=== PATIENT | male | born 1995 | race African-American/Black ===

== ENCOUNTER 2017-06-05 | Emergency (ER) | payer OTHER, SELFPAY ==
--- NOTE | 2017-06-05 15:47 | ER ---
Nurse's Notes [facility] Name: Tino Farrell Age: 21 yrs Sex: Male : 1995 Arrival Date: 06/05/2017 Time: 14:33 Bed Waiting Private MD: Diagnosis: Presentation: 06/05 14:48 Presenting complaint: Patient states: my tummy was hurling this morning, its like a hj sharp pain; lower part; denies nausea and vomiting; reports diarrhea x 1;. Transition of care: patient was not received from another setting of care. Onset of symptoms was June 05, 2017. Care prior to arrival: None. 14:48 Method Of Arrival: Ambulatory 14:48 Acuity: JOSE ANTONIO 3 hj 15:46 Note pt states, something came up, wanted to leave; pt left at 1545. Triage Assessment: 14:51 General: Appears in no apparent distress. uncomfortable, Behavior is calm, cooperative, hj appropriate for age. Pain: Complains of pain in right lower quadrant and left lower quadrant. GI: Reports lower abdominal pain, nausea. Historical: - Allergies: 14:50 No Known Allergies; hj - Home Meds: 14:50 None [Active]; hj - PMHx: 14:50 None; - PSHx: 14:50 None; Assessment: 14:51 GI: Bowel sounds present X 4 quads. Abd is soft. Vital Signs: 14:51 BP 142 / 79; Pulse 80; Resp 18; Temp 98.2(TE); Pulse Ox 100% on R/A; Weight 116.57 kg; hj Height 6 ft. 5 in. (195.58 cm); Pain 6/10; 14:51 Body Mass Index 30.47 (116.57 kg, 195.58 cm) ED Course: 14:33 Patient arrived in ED. mr 14:50 Triage completed. 14:51 Arm band placed on right wrist. Administered Medications: No medications were administered Outcome: 15:47 Patient left the ED. Signatures: Jaen May Henry, RN RN hj Corrections: (The following items were deleted from the chart) 14:53 14:51 Pulse 80bpm; Resp 18bpm; Pulse Ox 100% RA; Temp 98.2F Temporal; 116.57 kg; Height hj 6 ft. 5 in.; BMI: 30.4; Pain 6/10; hj
== END 2017-06-05 15:47 | disposition left against medical advice (07) ==
DX: Z53.21 Procedure and treatment not carried out due to patient leaving prior to being seen by health care provider (principal)
CPT/HCPCS: 99281

== ENCOUNTER 2018-05-23 09:06 | Emergency (ER) | payer SELFPAY ==
--- NOTE | 2018-05-23 10:11 | EDPHYS ---
Physician Documentation [facility] Name: Tino Farrell Age: 22 yrs Sex: Male : 1995 Arrival Date: 05/23/2018 Time: 09:09 Bed 18 Private MD: ED Physician Lev Edwards HPI: 05/23 09:35 This 22 yrs old Black Male presents to ER via Ambulatory with complaints of Fever. cp 09:35 The patient reports fever, not measured (subjective). Onset: The symptoms/episode cp began/occurred 2 day(s) ago. Associated signs and symptoms: Pertinent positives: cough, sinus congestion, sore throat, Pertinent negatives: diarrhea, vomiting. Severity of symptoms: in the emergency department the symptoms have improved mildly. Historical: - Allergies: 09:45 No Known Allergies; hb - Home Meds: 09:45 None [Active]; hb - PMHx: 09:45 None; hb - PSHx: 09:45 None; hb - Immunization history:: Adult Immunizations up to date. - Social history:: Smoking status: Patient/guardian denies using tobacco. - Ebola Screening: : No symptoms or risks identified at this time. ROS: 09:40 Constitutional: Negative for body aches, fever, poor PO intake. cp 09:40 Eyes: Negative for injury, pain, redness, and discharge. cp 09:40 ENT: Positive for sinus congestion, sore throat, Negative for drainage from ear(s), ear pain, difficulty swallowing, difficulty handling secretions. 09:40 Neck: Negative for pain with movement, pain at rest, stiffness. 09:40 Respiratory: Positive for cough, Negative for wheezing. 09:40 Abdomen/GI: Negative for vomiting, diarrhea, constipation. 09:40 Skin: Negative for rash. 09:40 Neuro: Negative for altered mental status, headache. 09:40 All other systems are negative. Exam: 09:45 Constitutional: The patient appears in no acute distress, alert, awake, non-toxic, well cp developed, well nourished. 09:45 Head/Face: Normocephalic, atraumatic. cp 09:45 Eyes: Periorbital structures: appear normal, Conjunctiva: normal, no exudate, no injection, Lids and lashes: appear normal, bilaterally. 09:45 ENT: External ear(s): are unremarkable, Ear canal(s): are normal, clear, TM's: dullness, bilaterally, Nose: is normal, Mouth: Lips: moist, Oral mucosa: moist, Posterior pharynx: Airway: no evidence of obstruction, patent, Tonsils: no enlargement, no exudate, erythema, that is mild, exudate, is not appreciated. 09:45 Neck: ROM/movement: is normal, is supple, without pain, no range of motions limitations, no meningismus, no nuchal rigidity. 09:45 Chest/axilla: Inspection: normal, Palpation: is normal, no crepitus, no tenderness. 09:45 Cardiovascular: Rate: normal, Rhythm: regular. 09:45 Respiratory: the patient does not display signs of respiratory distress, Respirations: normal, no use of accessory muscles, no retractions, no splinting, no tachypnea, labored breathing, is not present, Breath sounds: decreased breath sounds, are not appreciated, stridor, is not appreciated, + upper airway congestion. wheezing: is not appreciated. 09:45 Abdomen/GI: Inspection: abdomen appears normal. 09:45 Skin: no rash present. Vital Signs: 09:24 BP 136 / 78; Pulse 63; Resp 18; Temp 98.3; Pulse Ox 99% on R/A; Weight 117.93 kg; dm5 Height 6 ft. 3 in. (190.50 cm) (R); 09:24 Body Mass Index 32.50 (117.93 kg, 190.50 cm) dm5 MDM: 09:18 Patient medically screened. cp 10:10 Data reviewed: vital signs, nurses notes, lab test result(s), and as a result, I will cp discharge patient. 10:10 Differential diagnosis: viral Infection, bacterial infection, bronchitis, pneumonia cp meningitis. Counseling: I had a detailed discussion with the patient and/or guardian regarding: the historical points, exam findings, and any diagnostic results supporting the discharge/admit diagnosis, lab results, to return to the emergency department if symptoms worsen or persist or if there are any questions or concerns that arise at home. 05/23 09:30 Order name: Influenza Screen (a \T\ B) 05/23 09:30 Order name: Strep 05/23 10:02 Order name: Throat Culture EDMS Administered Medications: No medications were administered Disposition: 05/24 07:43 Co-signature as Attending Physician, Lev Edwards MD I agree with the assessment and [facility] plan of care. Disposition: 05/23/18 10:11 Discharged to Home. Impression: Acute upper respiratory infection, unspecified. - Condition is Stable. - Discharge Instructions: Upper Respiratory Infection, Adult, Viral Respiratory Infection, Form - Excuse from Work, School, or Physical Activity. - Medication Reconciliation Form, Thank You Letter, Antibiotic Education, Prescription Opioid Use form. - Follow up: Private Physician; When: 2 - 3 days; Reason: Worsening of condition. - Problem is new. - Symptoms have improved. Signatures: Dispatcher [employer] EDLev Kiran MD MD cha Page, Corey, AISHWARYA PA Marcelle Bo, RN RN hb Corrections: (The following items were deleted from the chart) 05/23 10:30 10:11 05/23/2018 10:11 Discharged to Home. Impression: Acute upper respiratory hb infection, unspecified. Condition is Stable. Forms are Medication Reconciliation Form, Thank You Letter, Antibiotic Education, Prescription Opioid Use. Follow up: Private Physician; When: 2 - 3 days; Reason: Worsening of condition. Problem is new. Symptoms have improved. cp
--- NOTE | 2018-05-23 10:11 | ER ---
Nurse's Notes [facility] Name: Tino Farrell Age: 22 yrs Sex: Male : 1995 Arrival Date: 05/23/2018 Time: 09:09 Bed 18 Private MD: Diagnosis: Acute upper respiratory infection, unspecified Presentation: 05/23 09:24 Presenting complaint: Patient states: cough, sore throat, fever started Monday. Whittaker a dm5 little better yesterday but his throat is hurting again. Temp 98.3 at this time. Transition of care: patient was not received from another setting of care. Onset of symptoms was May 21, 2018. Risk Assessment: Do you want to hurt yourself or someone else? Patient reports no desire to harm self or others. Initial Sepsis Screen: Does the patient meet any 2 criteria? No. Patient's initial sepsis screen is negative. Does the patient have a suspected source of infection? No. Patient's initial sepsis screen is negative. Care prior to arrival: None. 09:24 Method Of Arrival: Ambulatory dm5 09:24 Acuity: JOSE ANTONIO 4 dm5 Triage Assessment: 09:24 General: Appears in no apparent distress. Behavior is calm, cooperative. Pain: dm5 Complains of pain in throat. Neuro: Level of Consciousness is awake, alert, obeys commands, Oriented to person, place, time, situation. Respiratory: Airway is patent Respiratory effort is even, unlabored, relaxed, Respiratory pattern is regular, symmetrical. Derm: Skin is pink, warm \T\ dry. Historical: - Allergies: 09:45 No Known Allergies; hb - Home Meds: 09:45 None [Active]; hb - PMHx: 09:45 None; hb - PSHx: 09:45 None; hb - Immunization history:: Adult Immunizations up to date. - Social history:: Smoking status: Patient/guardian denies using tobacco. - Ebola Screening: : No symptoms or risks identified at this time. Screenin:45 Abuse screen: Denies threats or abuse. Denies injuries from another. Nutritional hb screening: No deficits noted. Tuberculosis screening: No symptoms or risk factors identified. Fall Risk None identified. Assessment: 09:30 General: Appears in no apparent distress. ill, Behavior is calm, cooperative. Pain: hb Denies pain. Neuro: Level of Consciousness is awake, alert, obeys commands, Oriented to person, place, time, situation. Cardiovascular: Capillary refill < 3 seconds Patient's skin is warm and dry. Respiratory: Airway is patent Respiratory effort is even, unlabored, Respiratory pattern is regular, symmetrical, Breath sounds are clear bilaterally. GI: No signs and/or symptoms were reported involving the gastrointestinal system. : No signs and/or symptoms were reported regarding the genitourinary system. EENT: No signs and/or symptoms were reported regarding the EENT system. Derm: Skin is intact, is healthy with good turgor. Musculoskeletal: No signs and/or symptoms reported regarding the musculoskeletal system. 10:28 Reassessment: Patient appears in no apparent distress at this time. No changes from hb previously documented assessment. Patient and/or family updated on plan of care and expected duration. Pain level reassessed. Patient is alert, oriented x 3, equal unlabored respirations, skin warm/dry/pink. Vital Signs: 09:24 BP 136 / 78; Pulse 63; Resp 18; Temp 98.3; Pulse Ox 99% on R/A; Weight 117.93 kg; dm5 Height 6 ft. 3 in. (190.50 cm) (R); 09:24 Body Mass Index 32.50 (117.93 kg, 190.50 cm) dm5 ED Course: 09:09 Patient arrived in ED. as 09:18 Lev Sandoval PA is PHCP. cp 09:18 Lev Edwards MD is Attending Physician. cp 09:24 Arm band placed on right wrist. Patient placed in an exam room. dm5 09:25 Triage completed. dm5 09:45 Patient has correct armband on for positive identification. Bed in low position. Call hb light in reach. Side rails up X 1. 10:20 Marcelle Del Valle, RN is Primary Nurse. hb 10:30 No provider procedures requiring assistance completed. Patient did not have IV access hb during this emergency room visit. Administered Medications: No medications were administered Outcome: 10:11 Discharge ordered by . cp 10:30 Discharged to home ambulatory. hb 10:30 Condition: stable 10:30 Discharge instructions given to patient, Instructed on discharge instructions, follow up and referral plans. medication usage, Demonstrated understanding of instructions, follow-up care, medications. 10:30 Patient left the ED. hb Signatures: Patrizia Cook RN RN dm5 Tomasa Stack Corey, PA PA Marcelle Bo, RN RN hb
== END 2018-05-23 10:30 | disposition home or self-care (01) ==
LOC: ER 09:06
DX: J06.9 Acute upper respiratory infection, unspecified (principal)
CPT/HCPCS: 87070; 87081; 87804; 99281

== ENCOUNTER 2018-07-25 19:57 | Emergency (ER) | payer SELFPAY ==
--- NOTE | 2018-07-25 20:58 | ER ---
Nurse's Notes [facility] Name: Tino Farrell Age: 22 yrs Sex: Male : 1995 Arrival Date: 07/25/2018 Time: 19:59 Bed 27 Private MD: Diagnosis: Acute pharyngitis Presentation: 07/25 20:04 Presenting complaint: Patient states: I have had fever, body aches, sore throat since la1 last night. Transition of care: patient was not received from another setting of care. Onset of symptoms was July 25, 2018. Risk Assessment: Do you want to hurt yourself or someone else? Patient reports no desire to harm self or others. Initial Sepsis Screen: Does the patient meet any 2 criteria? No. Patient's initial sepsis screen is negative. Does the patient have a suspected source of infection? No. Patient's initial sepsis screen is negative. Care prior to arrival: None. 20:04 Method Of Arrival: Ambulatory la1 20:04 Acuity: JOSE ANTONIO 4 la1 Triage Assessment: 21:18 Headache History: The patient has had previous headaches. General: Appears in no mg2 apparent distress. Behavior is calm, cooperative. Pain: Complains of pain in head. 21:18 Pain: Pain currently is 2 out of 10 on a pain scale. Pain began suddenly, 1 day ago. mg2 Also complains of no other associated symptoms. Historical: - Allergies: 20:05 No Known Allergies; la1 - PMHx: 20:05 None; la1 - Immunization history:: Adult Immunizations up to date. - Social history:: Smoking status: Patient/guardian denies using tobacco. - Ebola Screening: : No symptoms or risks identified at this time. Screenin:51 Abuse screen: Denies threats or abuse. Denies injuries from another. Nutritional mg2 screening: No deficits noted. Tuberculosis screening: No symptoms or risk factors identified. Fall Risk None identified. Assessment: 20:51 General: Appears in no apparent distress. comfortable, Behavior is calm, cooperative. mg2 Pain: Complains of pain in throat. Neuro: Level of Consciousness is awake, alert, obeys commands, Oriented to person, place, time, situation. Neuro: Reports headache. Cardiovascular: Capillary refill < 3 seconds Patient's skin is warm and dry. Respiratory: Airway is patent Respiratory effort is even, unlabored, Respiratory pattern is regular, symmetrical. GI: No signs and/or symptoms were reported involving the gastrointestinal system. : No signs and/or symptoms were reported regarding the genitourinary system. EENT: Reports sore throat. Derm: Skin is intact, is healthy with good turgor, Skin is pink, warm \T\ dry. normal. Musculoskeletal: Circulation, motion, and sensation intact. Capillary refill < 3 seconds. Vital Signs: 20:05 BP 130 / 83; Pulse 109; Resp 16; Temp 99.9; Pulse Ox 100% on R/A; Weight 113.4 kg; la1 Height 6 ft. 2 in. (187.96 cm); Pain 4/10; 20:50 BP 125 / 78; Pulse 110; Resp 18; Temp 101.7(O); Pulse Ox 100% on R/A; Pain 2/10; mg2 20:05 Body Mass Index 32.10 (113.40 kg, 187.96 cm) la1 ED Course: 19:59 Patient arrived in ED. am2 20:05 Triage completed. la1 20:05 Arm band placed on left wrist. la1 20:12 Nguyen Navarro FNP-C is [facility]. kb 20:12 Jaspal Conley MD is Attending Physician. kb 20:46 Rupert Esparza RN is Primary Nurse. mg2 20:51 No provider procedures requiring assistance completed. Patient did not have IV access mg2 during this emergency room visit. 21:18 Patient has correct armband on for positive identification. Pulse ox on. NIBP on. mg2 Administered Medications: 20:56 Drug: Motrin 600 mg Route: PO; mg2 21:16 Follow up: Response: No adverse reaction; Medication administered at discharge. mg2 Outcome: 20:58 Discharge ordered by . kb 21:17 Discharged to home ambulatory. mg2 21:17 Condition: stable 21:17 Discharge instructions given to patient, Instructed on discharge instructions, follow up and referral plans. Demonstrated understanding of instructions, follow-up care. 21:19 Patient left the ED. mg2 Signatures: Nguyen Navarro FNP-C FNP-Amando Tolbert RN RN la1 Maria Alejandra Toney am2 Rupert Esparza RN RN mg2 Corrections: (The following items were deleted from the chart) 21:17 20:50 Temp 101.7F Oral; mg2 mg2
--- NOTE | 2018-07-25 20:58 | EDPHYS ---
Physician Documentation [facility] Name: Tino Farrell Age: 22 yrs Sex: Male : 1995 Arrival Date: 07/25/2018 Time: 19:59 Bed 27 Private MD: ED Physician Jaspal Conley HPI: 07/25 20:56 This 22 yrs old Black Male presents to ER via Ambulatory with complaints of Fever, kb Headache, Sore Throat. 20:56 The patient presents with sore throat. The patient describes throat pain as constant. kb 20:56 Onset: The symptoms/episode began/occurred last night. Severity of symptoms: At their kb worst the symptoms were moderate, in the emergency department the symptoms are unchanged. Modifying factors: The symptoms are alleviated by nothing, the symptoms are aggravated by swallowing, Patient's oral intake status: good. Associated signs and symptoms: Pertinent positives: fever, flu-like symptoms, myalgias, Sore throat. The patient has not experienced similar symptoms in the past. The patient has not recently seen a physician. Historical: - Allergies: 20:05 No Known Allergies; la1 - PMHx: 20:05 None; la1 - Immunization history:: Adult Immunizations up to date. - Social history:: Smoking status: Patient/guardian denies using tobacco. - Ebola Screening: : No symptoms or risks identified at this time. ROS: 20:54 Cardiovascular: Negative for chest pain, palpitations, and edema, Respiratory: Negative kb for shortness of breath, cough, wheezing, and pleuritic chest pain, Abdomen/GI: Negative for abdominal pain, nausea, vomiting, diarrhea, and constipation, Back: Negative for injury and pain, MS/Extremity: Negative for injury and deformity, Skin: Negative for injury, rash, and discoloration, Neuro: Negative for headache, weakness, numbness, tingling, and seizure. 20:54 Constitutional: Positive for body aches, chills, fatigue, fever, malaise, Negative for poor PO intake, weight loss. 20:54 ENT: Positive for sore throat. Exam: 20:54 Constitutional: This is a well developed, well nourished patient who is awake, alert, kb and in no acute distress. Head/Face: Normocephalic, atraumatic. Neck: Trachea midline, no thyromegaly or masses palpated, and no cervical lymphadenopathy. Supple, full range of motion without nuchal rigidity, or vertebral point tenderness. No Meningismus. Chest/axilla: Normal chest wall appearance and motion. Nontender with no deformity. No lesions are appreciated. Cardiovascular: Regular rate and rhythm with a normal S1 and S2. No gallops, murmurs, or rubs. Normal PMI, no JVD. No pulse deficits. Respiratory: Lungs have equal breath sounds bilaterally, clear to auscultation and percussion. No rales, rhonchi or wheezes noted. No increased work of breathing, no retractions or nasal flaring. Abdomen/GI: Soft, non-tender, with normal bowel sounds. No distension or tympany. No guarding or rebound. No evidence of tenderness throughout. Skin: Warm, dry with normal turgor. Normal color with no rashes, no lesions, and no evidence of cellulitis. MS/ Extremity: Pulses equal, no cyanosis. Neurovascular intact. Full, normal range of motion. Neuro: Awake and alert, GCS 15, oriented to person, place, time, and situation. Cranial nerves II-XII grossly intact. Motor strength 5/5 in all extremities. Sensory grossly intact. Cerebellar exam normal. Normal gait. 20:54 ENT: External ear(s): are unremarkable, Ear canal(s): are normal, TM's: are normal, Nose: is normal, Mouth: is normal, Posterior pharynx: Airway: normal, no evidence of obstruction, Tonsils: bilaterally enlarged, with erythema, Uvula: normal, midline, swelling, that is mild, erythema, that is moderate, exudate, is not appreciated. Vital Signs: 20:05 BP 130 / 83; Pulse 109; Resp 16; Temp 99.9; Pulse Ox 100% on R/A; Weight 113.4 kg; la1 Height 6 ft. 2 in. (187.96 cm); Pain 4/10; 20:50 BP 125 / 78; Pulse 110; Resp 18; Temp 101.7(O); Pulse Ox 100% on R/A; Pain 2/10; mg2 20:05 Body Mass Index 32.10 (113.40 kg, 187.96 cm) la1 MDM: 20:31 Patient medically screened. kb 20:55 Data reviewed: vital signs, nurses notes. Data interpreted: Pulse oximetry: on room air kb is 100 %. Interpretation: normal. Counseling: I had a detailed discussion with the patient and/or guardian regarding: the historical points, exam findings, and any diagnostic results supporting the discharge/admit diagnosis, lab results, the need for outpatient follow up, a family practitioner, to return to the emergency department if symptoms worsen or persist or if there are any questions or concerns that arise at home. 07/25 20:06 Order name: Strep; Complete Time: 20:47 la1 07/25 20:06 Order name: Flu; Complete Time: 20:47 la1 07/25 20:44 Order name: Throat Culture EDMS Administered Medications: 20:56 Drug: Motrin 600 mg Route: PO; mg2 21:16 Follow up: Response: No adverse reaction; Medication administered at discharge. mg2 Disposition: 07/26 07:54 Co-signature as Attending Physician, Jaspal Conley MD I agree with the assessment and wa plan of care. Disposition: 07/25/18 20:58 Discharged to Home. Impression: Acute pharyngitis. - Condition is Stable. - Discharge Instructions: Pharyngitis, [id number], Viral Respiratory Infection, [id number], Sore Throat, [id number]. - Medication Reconciliation Form, Thank You Letter, Antibiotic Education, Prescription Opioid Use, Work release form form. - Follow up: Emergency Department; When: As needed; Reason: Worsening of condition. Follow up: Private Physician; When: 2 - 3 days; Reason: Recheck today's complaints, Continuance of care, Re-evaluation by your physician. Signatures: Dispatcher [employer] EDID Nguyen Navarro, EDWINC [employer] FRY COOK-Amando Tolbert RN RN la1 Jaspal Conley MD MD wa Gardose, Michele, RN RN mg2 Corrections: (The following items were deleted from the chart) 07/25 21:19 20:58 07/25/2018 20:58 Discharged to Home. Impression: Acute pharyngitis. Condition is mg2 Stable. Forms are Medication Reconciliation Form, Thank You Letter, Antibiotic Education, Prescription Opioid Use. Follow up: Emergency Department; When: As needed; Reason: Worsening of condition. Follow up: Private Physician; When: 2 - 3 days; Reason: Recheck today's complaints, Continuance of care, Re-evaluation by your physician. kb
[2018-07-25] MEDS ORDERED: IBUPROFEN 200 MG TAB PO ONE (21:08)
== END 2018-07-25 21:19 | disposition home or self-care (01) ==
LOC: ER 19:57
DX: J02.9 Acute pharyngitis, unspecified (principal)
CPT/HCPCS: 87070; 87081; 87804; 99283

== ENCOUNTER 2018-08-19 21:11 | Emergency (ER) | payer SELFPAY ==
[2018-08-19] MEDS ORDERED: ONDANSETRON 4 MG (ODT) TAB ONE (21:39)
[2018-08-19 22:01] LABS: Urine Bacteria <20 /HPF (NONE SEEN); Urine Culture Reflex Order NOT NEEDED; Urine RBC <5 /HPF (NONE SEEN)
[2018-08-19 22:02] LABS: Urine Blood TRACE (NEG); Urine Glucose NEGATIVE (NEG); Urine Protein 1+ (NEG); Urine Specific Gravity 1.025 (1.005-1.030)
--- NOTE | 2018-08-19 22:02 | EDPHYS ---
Physician Documentation [facility] Name: Tino Farrell Age: 22 yrs Sex: Male : 1995 Arrival Date: 08/19/2018 Time: 21:14 Bed 6 Private MD: ED Physician Jaspal Conley HPI: 08/19 22:04 This 22 yrs old Black Male presents to ER via Ambulatory with complaints of Abdominal snw Cramping, Nausea/Vomiting. 22:04 The patient presents to the emergency department with nausea, vomiting, diarrhea, snw abdominal pain, of the suprapubic area, described as crampy. Onset: The symptoms/episode began/occurred suddenly, this morning. Possible causes: bad food exposure, "after getting home from drinking". Associated signs and symptoms: Pertinent positives: abdominal pain, diarrhea, nausea, vomiting. Severity of symptoms: At their worst the symptoms were mild moderate. It is unknown whether or not the patient has had similar symptoms in the past. It is unknown whether or not the patient has recently seen a physician. feeling better but needs work excuse. Historical: - Allergies: 21:17 No Known Allergies; aa1 - Home Meds: 21:17 None [Active]; aa1 - PMHx: 21:17 None; aa1 - PSHx: 21:17 None; aa1 - Immunization history:: Flu vaccine is not up to date. - Social history:: Smoking status: Patient/guardian denies using tobacco. - Ebola Screening: : No symptoms or risks identified at this time. ROS: 22:02 Constitutional: Negative for fever, chills, and weight loss, Eyes: Negative for injury, snw pain, redness, and discharge, ENT: Negative for injury, pain, and discharge, Neck: Negative for injury, pain, and swelling, Cardiovascular: Negative for chest pain, palpitations, and edema, Respiratory: Negative for shortness of breath, cough, wheezing, and pleuritic chest pain, Back: Negative for injury and pain, : Negative for injury, bleeding, discharge, and swelling, MS/Extremity: Negative for injury and deformity, Skin: Negative for injury, rash, and discoloration, Neuro: Negative for headache, weakness, numbness, tingling, and seizure. 22:02 Abdomen/GI: Positive for abdominal pain, nausea, vomiting, and diarrhea. Exam: 22:02 Constitutional: This is a well developed, well nourished patient who is awake, alert, snw and in no acute distress. Head/Face: Normocephalic, atraumatic. Eyes: Pupils equal round and reactive to light, extra-ocular motions intact. Lids and lashes normal. Conjunctiva and sclera are non-icteric and not injected. Cornea within normal limits. Periorbital areas with no swelling, redness, or edema. ENT: Nares patent. No nasal discharge, no septal abnormalities noted. Tympanic membranes are normal and external auditory canals are clear. Oropharynx with no redness, swelling, or masses, exudates, or evidence of obstruction, uvula midline. Mucous membranes moist. Neck: Trachea midline, no thyromegaly or masses palpated, and no cervical lymphadenopathy. Supple, full range of motion without nuchal rigidity, or vertebral point tenderness. No Meningismus. Chest/axilla: Normal chest wall appearance and motion. Nontender with no deformity. No lesions are appreciated. Cardiovascular: Regular rate and rhythm with a normal S1 and S2. No gallops, murmurs, or rubs. Normal PMI, no JVD. No pulse deficits. Respiratory: Lungs have equal breath sounds bilaterally, clear to auscultation and percussion. No rales, rhonchi or wheezes noted. No increased work of breathing, no retractions or nasal flaring. Back: No spinal tenderness. No costovertebral tenderness. Full range of motion. Skin: Warm, dry with normal turgor. Normal color with no rashes, no lesions, and no evidence of cellulitis. MS/ Extremity: Pulses equal, no cyanosis. Neurovascular intact. Full, normal range of motion. Neuro: Awake and alert, GCS 15, oriented to person, place, time, and situation. Cranial nerves II-XII grossly intact. Motor strength 5/5 in all extremities. Sensory grossly intact. Cerebellar exam normal. Normal gait. 22:02 Abdomen/GI: Inspection: abdomen appears normal, Bowel sounds: normal, Palpation: abdomen is soft and non-tender, in all quadrants. Vital Signs: 21:17 BP 148 / 82; Pulse 64; Resp 16; Temp 98.2; Pulse Ox 99% on R/A; Weight 115.67 kg; aa1 Height 6 ft. 2 in. (187.96 cm); Pain 3/10; 22:00 BP 144 / 88; Pulse 74; Resp 18; Temp 98; Pulse Ox 99% ; ea 21:17 Body Mass Index 32.74 (115.67 kg, 187.96 cm) aa1 MDM: 21:39 Patient medically screened. snw 22:02 Data reviewed: vital signs, nurses notes. Data interpreted: Pulse oximetry: on room air snw is 99 %. Interpretation: normal. Counseling: I had a detailed discussion with the patient and/or guardian regarding: the historical points, exam findings, and any diagnostic results supporting the discharge/admit diagnosis, the presence of at least one elevated blood pressure reading (>120/80) during this emergency department visit, lab results, the need for outpatient follow up, to return to the emergency department if symptoms worsen or persist or if there are any questions or concerns that arise at home. Special discussion: Based on the patient's Hx, exam, and Dx evaluation, there is no indication for emergent surgery or inpatient Tx. It is understood by the patient/guardian that if the Sx's persist or worsen they need to return immediately for re-evaluation. Based on the history and exam findings, there is no indication for further emergent testing or inpatient evaluation. I discussed with the patient/guardian the need to see the primary care provider for further evaluation of the symptoms. 08/19 21:20 Order name: Urine Microscopic Only; Complete Time: 22:05 snw 08/19 21:39 Order name: Urine Dipstick--Ancillary (enter results); Complete Time: 22:05 cm6 08/19 21:20 Order name: Urine Dipstick-Ancillary (obtain specimen); Complete Time: 21:36 snw Administered Medications: 21:37 Drug: Zofran 4 mg Route: PO; ea 22:18 Follow up: Response: No adverse reaction; Marked relief of symptoms ea Disposition: 08/19/18 22:00 Discharged to Home. Impression: Nausea and vomiting, Diarrhea, unspecified, Lower abdominal pain, unspecified. - Condition is Stable. - Discharge Instructions: Alcohol Intoxication, Food Choices to Help Relieve Diarrhea, Adult, Diarrhea, Adult, Nausea and Vomiting, Adult, Rehydration, Adult. - Prescriptions for Zofran 4 mg Oral Tablet - take 1 tablet by ORAL route every 12 hours As needed; 10 tablet. - Work release form, Medication Reconciliation Form, Thank You Letter, Antibiotic Education, Prescription Opioid Use form. - Follow up: Private Physician; When: 2 - 3 days; Reason: Recheck today's complaints, Continuance of care, Re-evaluation by your physician. Follow up: Emergency Department; When: As needed; Reason: Worsening of condition. Signatures: Dispatcher [employer] EDMS Danyell Luna RN RN aa1 Tiff Hamilton, CONTROLS ENGINEER-C CONTROLS ENGINEER-Csnw Ines Stanton RN RN ea Corrections: (The following items were deleted from the chart) 22:03 22:00 08/19/2018 22:00 Discharged to Home. Impression: Nausea and vomiting; Diarrhea, snw unspecified. Condition is Stable. Forms are Medication Reconciliation Form, Thank You Letter, Antibiotic Education, Prescription Opioid Use. Follow up: Private Physician; When: 2 - 3 days; Reason: Recheck today's complaints, Continuance of care, Re-evaluation by your physician. Follow up: Emergency Department; When: As needed; Reason: Worsening of condition. snw 22:18 22:03 08/19/2018 22:00 Discharged to Home. Impression: Nausea and vomiting; Diarrhea, ea unspecified; Lower abdominal pain, unspecified. Condition is Stable. Discharge Instructions: Alcohol Intoxication, Food Choices to Help Relieve Diarrhea, Adult, Diarrhea, Adult, Nausea and Vomiting, Adult, Rehydration, Adult. Prescriptions for Zofran 4 mg Oral Tablet - take 1 tablet by ORAL route every 12 hours As needed; 10 tablet. and Forms are Medication Reconciliation Form, Thank You Letter, Antibiotic Education, Prescription Opioid Use, Work release form. Follow up: Private Physician; When: 2 - 3 days; Reason: Recheck today's complaints, Continuance of care, Re-evaluation by your physician. Follow up: Emergency Department; When: As needed; Reason: Worsening of condition. snw
--- NOTE | 2018-08-19 22:02 | ER ---
Nurse's Notes [facility] Name: Tino Farrell Age: 22 yrs Sex: Male : 1995 Arrival Date: 08/19/2018 Time: 21:14 Bed 6 Private MD: Diagnosis: Nausea and vomiting;Diarrhea, unspecified;Lower abdominal pain, unspecified Presentation: 08/19 21:16 Presenting complaint: Patient states: he thinks he had food poisoning because this aa1 morning he had V/D. Reports his sister gave him some medicine that made him feel better but he wanted to come in to be cleared since he has to go to work tomorrow. Transition of care: patient was not received from another setting of care. Onset of symptoms was August 19, 2018. Risk Assessment: Do you want to hurt yourself or someone else? Patient reports no desire to harm self or others. Initial Sepsis Screen: Does the patient meet any 2 criteria? No. Patient's initial sepsis screen is negative. Does the patient have a suspected source of infection? No. Patient's initial sepsis screen is negative. Care prior to arrival: None. 21:16 Method Of Arrival: Ambulatory aa1 21:16 Acuity: JOSE ANTONIO 3 aa1 Triage Assessment: 21:17 General: Appears in no apparent distress. comfortable, Behavior is calm, cooperative, aa1 appropriate for age. Historical: - Allergies: 21:17 No Known Allergies; aa1 - Home Meds: 21:17 None [Active]; aa1 - PMHx: 21:17 None; aa1 - PSHx: 21:17 None; aa1 - Immunization history:: Flu vaccine is not up to date. - Social history:: Smoking status: Patient/guardian denies using tobacco. - Ebola Screening: : No symptoms or risks identified at this time. Screenin:36 Abuse screen: Denies threats or abuse. Nutritional screening: No deficits noted. ea Tuberculosis screening: No symptoms or risk factors identified. Fall Risk None identified. Assessment: 21:35 General: Appears in no apparent distress. Behavior is calm, cooperative, appropriate ea for age. Pain: Complains of pain in abdomen Pain currently is 3 out of 10 on a pain scale. Pain: Quality of pain is described as crampy. Neuro: Level of Consciousness is awake, alert, obeys commands, Oriented to person, place, time, situation. Cardiovascular: Patient's skin is warm and dry. Respiratory: Airway is patent Respiratory effort is even, unlabored, Respiratory pattern is regular, symmetrical. GI: Abdomen is non-distended, Bowel sounds present X 4 quads. Abd is soft and non tender X 4 quads. Derm: Skin is pink, warm \T\ dry. 22:15 Reassessment: Patient and/or family updated on plan of care and expected duration. Pain ea level reassessed. Patient is alert, oriented x 3, equal unlabored respirations, skin warm/dry/pink. Discharge instructions given to patient, verbalized the understanding of instruction. Vital Signs: 21:17 BP 148 / 82; Pulse 64; Resp 16; Temp 98.2; Pulse Ox 99% on R/A; Weight 115.67 kg; aa1 Height 6 ft. 2 in. (187.96 cm); Pain 3/10; 22:00 BP 144 / 88; Pulse 74; Resp 18; Temp 98; Pulse Ox 99% ; ea 21:17 Body Mass Index 32.74 (115.67 kg, 187.96 cm) aa1 ED Course: 21:14 Patient arrived in ED. ag3 21:17 Triage completed. aa1 21:17 Arm band placed on left wrist. Patient placed in an exam room, on a stretcher. aa1 21:19 Tiff Hamilton FNP-C is [facility]. snw 21:19 Jaspal Conley MD is Attending Physician. snw 21:30 Urine collected: clean catch specimen, clear. rr5 21:32 Ines Stanton, RN is Primary Nurse. ea 21:36 Patient has correct armband on for positive identification. Bed in low position. Call ea light in reach. 22:16 No provider procedures requiring assistance completed. Patient did not have IV access ea during this emergency room visit. Administered Medications: 21:37 Drug: Zofran 4 mg Route: PO; ea 22:18 Follow up: Response: No adverse reaction; Marked relief of symptoms ea Outcome: 22:00 Discharge ordered by . snw 22:16 Discharged to home ambulatory. ea 22:16 Condition: good 22:16 Discharge instructions given to patient, Instructed on discharge instructions, follow up and referral plans. medication usage, Demonstrated understanding of instructions, follow-up care, medications, Prescriptions given X 1. 22:18 Patient left the ED. ea Signatures: Danyell Luna, RN RN aa1 Tiff Hamilton, QC MANAGER-C QC MANAGER-Csnw Ines Stanton, RN RN Rosetta Jung3 Thomas Cummings RN RN rr5
== END 2018-08-19 22:18 | disposition home or self-care (01) ==
LOC: ER 21:11
DX: R11.2 Nausea with vomiting, unspecified (principal); R19.7 Diarrhea, unspecified
CPT/HCPCS: 81003; 81015; 99283

== ENCOUNTER 2019-03-20 09:46 | Emergency (ER) | payer SELFPAY ==
[2019-03-20] MEDS ORDERED: BENZONATATE 100 MG CAP PO ONE (10:06)
--- NOTE | 2019-03-20 10:55 | ER ---
Nurse's Notes [facility] Name: Tino Farrell Age: 23 yrs Sex: Male : 1995 Arrival Date: 03/20/2019 Time: 09:49 Bed 15 Private MD: Diagnosis: Acute upper respiratory infection, unspecified Presentation: 03/20 09:57 Presenting complaint: Patient states: Non-productive cough and itchy throat since jl7 Monday, "When I try to do anything outside I start coughing and my throat gets real itchy." Deep breaths trigger coughing. Transition of care: patient was not received from another setting of care. Onset of symptoms was March 15, 2019. Risk Assessment: Do you want to hurt yourself or someone else? Patient reports no desire to harm self or others. Initial Sepsis Screen: Does the patient meet any 2 criteria? No. Patient's initial sepsis screen is negative. Does the patient have a suspected source of infection? No. Patient's initial sepsis screen is negative. Care prior to arrival: None. 09:57 Method Of Arrival: Ambulatory jl7 09:57 Acuity: JOSE ANTONIO 4 jl7 Triage Assessment: 10:00 General: Appears in no apparent distress. uncomfortable, Behavior is calm, cooperative, jl7 appropriate for age. Pain: Denies pain. EENT: Oral mucosa is moist. Throat is clear. Neuro: Level of Consciousness is awake, alert, obeys commands, Oriented to person, place, time, situation. Cardiovascular: Heart tones S1 S2 present Patient's skin is warm and dry. Respiratory: Reports cough that is non-productive, dry, hacking, Airway is patent Respiratory effort is even, unlabored, Respiratory pattern is regular, symmetrical, Onset: The symptoms/episode began/occurred Mar 15, 2019, the patient has mild shortness of breath. Derm: Skin is dry, Skin is normal, Skin temperature is warm. Historical: - Allergies: 10:00 No Known Allergies; jl7 - Home Meds: 10:00 None [Active]; jl7 - PMHx: 10:00 None; jl7 - PSHx: 10:00 None; jl7 - Immunization history:: Adult Immunizations unknown. - Social history:: Smoking status: Patient/guardian denies using tobacco. - Ebola Screening: : No symptoms or risks identified at this time. Screenin:03 Abuse screen: Denies threats or abuse. Denies injuries from another. Nutritional jl7 screening: No deficits noted. Tuberculosis screening: No symptoms or risk factors identified. Fall Risk None identified. Assessment: 10:03 General: See triage. Cardiovascular: Rhythm is regular. Respiratory: Airway is patent jl7 Respiratory effort is even, unlabored, Respiratory pattern is regular, symmetrical, Breath sounds are clear bilaterally. 11:00 Reassessment: Patient appears in no apparent distress at this time. No changes from jl7 previously documented assessment. Patient and/or family updated on plan of care and expected duration. Pain level reassessed. Patient is alert, oriented x 3, equal unlabored respirations, skin warm/dry/pink. Vital Signs: 10:00 BP 144 / 90; Pulse 59; Resp 19 S; Temp 98.2(O); Pulse Ox 100% on R/A; Weight 113.4 kg jl7 (R); Height 6 ft. 2 in. (187.96 cm) (R); Pain 0/10; 11:00 BP 139 / 85; Pulse 61; Resp 16 S; Pulse Ox 100% on R/A; jl7 10:00 Body Mass Index 32.10 (113.40 kg, 187.96 cm) jl7 ED Course: 09:49 Patient arrived in ED. mr 09:51 Zhou Hartmann RN is Primary Nurse. jl7 09:53 Lev Sandoval PA is PHCP. cp 09:53 Lucas Chaudhari MD is Attending Physician. cp 09:59 Triage completed. jl7 10:00 Arm band placed on right wrist. jl7 10:03 Patient has correct armband on for positive identification. Bed in low position. Call jl7 light in reach. Side rails up X 1. Pulse ox on. NIBP on. 10:03 Flu and/or RSV swab sent to lab. Strep swab sent to lab. jl7 11:00 No provider procedures requiring assistance completed. Patient did not have IV access jl7 during this emergency room visit. Administered Medications: 10:11 Drug: Tessalon Perle 200 mg Route: PO; em 11:13 Follow up: Response: No adverse reaction jl7 Outcome: 10:54 Discharge ordered by . cp 11:00 Discharged to home ambulatory. jl7 11:00 Condition: stable 11:00 Discharge instructions given to patient, Instructed on discharge instructions, follow up and referral plans. medication usage, Demonstrated understanding of instructions, follow-up care, medications, Prescriptions given X 1. 11:14 Patient left the ED. jl7 Signatures: Jessica May Edgar, RN RN Lev Maldonado PA PA cp Leal, Jahala, RN RN jl7
--- NOTE | 2019-03-20 10:55 | EDPHYS ---
Physician Documentation [facility] Name: Tino Farrell Age: 23 yrs Sex: Male : 1995 Arrival Date: 03/20/2019 Time: 09:49 Bed 15 Private MD: ED Physician Lucas Chaudhari HPI: 03/20 10:02 This 23 yrs old Black Male presents to ER via Ambulatory with complaints of Breathing cp Difficulty, Sore Throat. 10:02 The patient or guardian reports cough, that is intermittent, with no sputum. Onset: The cp symptoms/episode began/occurred last week. Associated signs and symptoms: Pertinent positives: sore throat, Pertinent negatives: diarrhea, fever, vomiting. Historical: - Allergies: 10:00 No Known Allergies; jl7 - Home Meds: 10:00 None [Active]; jl7 - PMHx: 10:00 None; jl7 - PSHx: 10:00 None; jl7 - Immunization history:: Adult Immunizations unknown. - Social history:: Smoking status: Patient/guardian denies using tobacco. - Ebola Screening: : No symptoms or risks identified at this time. ROS: 10:03 Eyes: Negative for injury, pain, redness, and discharge. cp 10:03 Constitutional: Negative for body aches, chills, fever, poor PO intake. 10:03 ENT: Positive for sore throat, Negative for drainage from ear(s), ear pain, difficulty swallowing, difficulty handling secretions. 10:03 Cardiovascular: Negative for chest pain. 10:03 Respiratory: Positive for cough, with no reported sputum, Negative for shortness of breath, wheezing. 10:03 Abdomen/GI: Negative for vomiting, diarrhea. 10:03 Skin: Negative for rash. 10:03 Neuro: Negative for headache. 10:03 All other systems are negative. Exam: 10:04 Head/Face: Normocephalic, atraumatic. cp 10:04 Constitutional: The patient appears in no acute distress, alert, awake, non-toxic, well developed, well nourished. 10:04 Eyes: Periorbital structures: appear normal, Conjunctiva: normal, no exudate, no injection, Lids and lashes: appear normal, bilaterally. 10:04 ENT: External ear(s): are unremarkable, Ear canal(s): are normal, clear, TM's: dullness, bilaterally, Nose: is normal, Mouth: Lips: moist, Oral mucosa: moist, Posterior pharynx: Airway: no evidence of obstruction, patent, Tonsils: no enlargement, no exudate, swelling, is not appreciated, erythema, that is mild, exudate, is not appreciated. 10:04 Neck: ROM/movement: is normal, is supple, no meningismus, no nuchal rigidity. 10:04 Chest/axilla: Inspection: normal, Palpation: is normal, no crepitus, no tenderness. 10:04 Cardiovascular: Rate: bradycardic, Rhythm: regular. 10:04 Respiratory: the patient does not display signs of respiratory distress, Respirations: normal, no use of accessory muscles, no retractions, no splinting, no tachypnea, labored breathing, is not present, Breath sounds: are clear throughout, no decreased breath sounds, no stridor, no wheezing. Vital Signs: 10:00 BP 144 / 90; Pulse 59; Resp 19 S; Temp 98.2(O); Pulse Ox 100% on R/A; Weight 113.4 kg jl7 (R); Height 6 ft. 2 in. (187.96 cm) (R); Pain 0/10; 11:00 BP 139 / 85; Pulse 61; Resp 16 S; Pulse Ox 100% on R/A; jl7 10:00 Body Mass Index 32.10 (113.40 kg, 187.96 cm) jl7 MDM: 10:01 Patient medically screened. cp 10:15 Differential diagnosis: bronchitis, flu, URI, strep throat. cp 10:51 Antibiotic administration: Not indicated, the patient does not have an appreciated cp infiltrate. 10:51 Data reviewed: vital signs, nurses notes, lab test result(s), and as a result, I will cp discharge patient. Counseling: I had a detailed discussion with the patient and/or guardian regarding: the historical points, exam findings, and any diagnostic results supporting the discharge/admit diagnosis, lab results, to return to the emergency department if symptoms worsen or persist or if there are any questions or concerns that arise at home. 03/20 10:02 Order name: Strep cp 03/20 10:02 Order name: Influenza Screen (a \T\ B) cp 03/20 10:22 Order name: Throat Culture [facility] Administered Medications: 10:11 Drug: Tessalon Perle 200 mg Route: PO; em 11:13 Follow up: Response: No adverse reaction jl7 Disposition: 11:39 Co-signature as Attending Physician, Lucas Chaudhari MD I agree with the assessment and kdr plan of care. Disposition: 03/20/19 10:54 Discharged to Home. Impression: Acute upper respiratory infection, unspecified. - Condition is Stable. - Discharge Instructions: Upper Respiratory Infection, Adult. - Prescriptions for Tessalon Perles 100 mg Oral Capsule - take 2 capsule by ORAL route every 8 hours As needed; 20 capsule. - Medication Reconciliation Form, Thank You Letter, Antibiotic Education, Prescription Opioid Use form. - Follow up: Private Physician; When: 2 - 3 days; Reason: Worsening of condition. - Problem is new. - Symptoms have improved. Signatures: Dispatcher [employer] [facility] Lucas Chaudhari MD MD [facility] [place] Thompson RN RN em Lev Sandoval PA PA cp Zhou Hartmann RN RN jl7 Corrections: (The following items were deleted from the chart) 11:14 10:54 03/20/2019 10:54 Discharged to Home. Impression: Acute upper respiratory jl7 infection, unspecified. Condition is Stable. Forms are Medication Reconciliation Form, Thank You Letter, Antibiotic Education, Prescription Opioid Use. Follow up: Private Physician; When: 2 - 3 days; Reason: Worsening of condition. Problem is new. Symptoms have improved. cp
[2019-03-20 11:19] VITALS: TEMP 98.2; O2SAT 100
[2019-03-20 11:20] VITALS: BP 139/85
== END 2019-03-20 11:14 | disposition home or self-care (01) ==
LOC: ER 09:46
DX: J06.9 Acute upper respiratory infection, unspecified (principal)
CPT/HCPCS: 87070; 87081; 87804; 99284

== ENCOUNTER 2019-05-27 13:12 | Emergency (ER) | payer SELFPAY ==
--- NOTE | 2019-05-27 14:22 | ER ---
Nurse's Notes [facility] Name: Tino Farrell Age: 23 yrs Sex: Male : 1995 Arrival Date: 05/27/2019 Time: 13:17 Bed 24 Private MD: Diagnosis: Acute upper respiratory infection, unspecified Presentation: 05/26 13:24 Chief complaint: Patient states: fever on Monday, cough, throat feels swollen since iw Monday. Coronavirus screen: The patient has NOT traveled to a country currently being monitored by the [facility] within the last 14 days. Proceed with normal triage procedures. The patient has NOT had contact with any known and/or suspected case of coronavirus. Proceed with normal triage procedures. Ebola Screen: Patient negative for fever greater than or equal to 101.5 degrees Fahrenheit, and additional compatible Ebola Virus Disease symptoms Patient denies exposure to infectious person. Patient denies travel to an Ebola-affected area in the 21 days before illness onset. No symptoms or risks identified at this time. Initial Sepsis Screen: Does the patient meet any 2 criteria? No. Patient's initial sepsis screen is negative. Does the patient have a suspected source of infection? No. Patient's initial sepsis screen is negative. Risk Assessment: Do you want to hurt yourself or someone else? Patient reports no desire to harm self or others. 13:24 Method Of Arrival: Ambulatory iw 13:24 Acuity: JOSE ANTONIO 4 iw 14:11 Onset of symptoms was May 20, 2019. dw Triage Assessment: 14:10 General: Appears in no apparent distress. Behavior is calm, cooperative, Reports throat dw feels swollen, red. Pain: Denies pain. Historical: - Allergies: 13:26 No Known Allergies; iw - Home Meds: 13:26 None [Active]; iw - PMHx: 13:26 None; iw - PSHx: 13:26 None; iw - Immunization history:: Adult Immunizations not up to date. - Social history:: Smoking status: Patient denies any tobacco usage or history of. Screenin:08 Abuse screen: Denies threats or abuse. Nutritional screening: No deficits noted. dw Tuberculosis screening: No symptoms or risk factors identified. Fall Risk None identified. Assessment: 14:09 Pain: Denies pain. Pain currently is 0 out of 10 on a pain scale. Respiratory: Airway. dw Respiratory: Respiratory effort is even, unlabored, Respiratory pattern is regular, symmetrical, Breath sounds are clear bilaterally. GI: No deficits noted. No signs and/or symptoms were reported involving the gastrointestinal system. : No deficits noted. No signs and/or symptoms were reported regarding the genitourinary system. EENT: Throat is reddened. Vital Signs: 13:24 BP 147 / 99; Pulse 66; Resp 16; Temp 98.4; Pulse Ox 100% on R/A; Weight 97.98 kg; iw Height 6 ft. 2 in. (187.96 cm); 14:13 BP 110 / 80; Pulse 64; Resp 20; Pulse Ox 100% ; dw 13:24 Body Mass Index 27.73 (97.98 kg, 187.96 cm) ED Course: 13:17 Patient arrived in ED. fj1 13:20 Lev Sandoval PA is PHCP. cp 13:20 Ancelmo Sarah MD is Attending Physician. cp 13:26 Triage completed. iw 13:26 Arm band placed on. iw 13:27 Flu and/or RSV swab sent to lab. Strep swab sent to lab. lt1 13:27 Strep Sent. lt1 13:27 Flu Sent. lt1 14:03 Melissa Guevara, RN is Primary Nurse. dw 14:11 Awaiting lab results. dw 14:11 No provider procedures requiring assistance completed. Patient did not have IV access dw during this emergency room visit. 14:12 Patient has correct armband on for positive identification. Bed in low position. Call dw light in reach. Pulse ox on. NIBP on. Administered Medications: No medications were administered Outcome: 14:20 Discharge ordered by . cp 14:43 Discharged to home ambulatory. dw 14:43 Condition: good 14:43 Discharge instructions given to patient, Instructed on discharge instructions, follow up and referral plans. 14:43 Patient left the ED. dw Signatures: Melissa Guevara, RN RN Cinthia Ruiz RN RN Lev Sandoval PA PA cp Tran, Leah lt1 Lawrence Quesada fj1
--- NOTE | 2019-05-27 14:22 | EDPHYS ---
Physician Documentation [facility] Name: Tino Farrell Age: 23 yrs Sex: Male : 1995 Arrival Date: 05/27/2019 Time: 13:17 Bed 24 Private MD: ED Physician Ancelmo Sarah HPI: 05/26 13:29 This 23 yrs old Black Male presents to ER via Ambulatory with complaints of Cough, Sore cp Throat. 13:30 The patient or guardian reports cough, that is intermittent, with no sputum, sore cp throat. 13:30 Onset: The symptoms/episode began/occurred 5 day(s) ago. Associated signs and symptoms: cp Pertinent negatives: chest pain, diarrhea, fever, vomiting. Historical: - Allergies: 13:26 No Known Allergies; iw - Home Meds: 13:26 None [Active]; iw - PMHx: 13:26 None; iw - PSHx: 13:26 None; iw - Immunization history:: Adult Immunizations not up to date. - Social history:: Smoking status: Patient denies any tobacco usage or history of. ROS: 13:35 Constitutional: Negative for body aches, chills, fever, poor PO intake. cp 13:35 Eyes: Negative for injury, pain, redness, and discharge. cp 13:35 ENT: Positive for sore throat, Negative for drainage from ear(s), ear pain, difficulty swallowing, difficulty handling secretions. 13:35 Cardiovascular: Negative for chest pain. 13:35 Respiratory: Positive for cough, Negative for hemoptysis, shortness of breath, wheezing. 13:35 Abdomen/GI: Negative for abdominal pain, nausea, vomiting, and diarrhea. 13:35 Back: Negative for pain at rest, pain with movement. 13:35 Skin: Negative for rash. 13:35 Neuro: Negative for altered mental status, dizziness, headache, weakness. 13:35 All other systems are negative. Exam: 13:42 Constitutional: The patient appears in no acute distress, alert, awake, non-toxic, well cp developed, well nourished. 13:42 Head/Face: Normocephalic, atraumatic. cp 13:42 Eyes: Periorbital structures: appear normal, Conjunctiva: normal, no exudate, no injection, Lids and lashes: appear normal, bilaterally. 13:42 ENT: External ear(s): are unremarkable, Ear canal(s): are normal, clear, TM's: bulging, is not appreciated, bilaterally, dullness, bilaterally, erythema, is not appreciated, bilaterally, Nose: is normal, Mouth: Lips: moist, Oral mucosa: moist, Posterior pharynx: Airway: no evidence of obstruction, patent, Tonsils: no enlargement, no exudate, Uvula: midline, swelling, is not appreciated, erythema, that is mild, exudate, is not appreciated. 13:42 Neck: ROM/movement: is normal, is supple, no meningismus, no nuchal rigidity, Lymph nodes: no appreciated lymphadenopathy. 13:42 Chest/axilla: Inspection: normal, Palpation: is normal, no crepitus, no tenderness. 13:42 Cardiovascular: Rate: normal, Rhythm: regular. cp 13:42 Respiratory: the patient does not display signs of respiratory distress, Respirations: cp normal, no use of accessory muscles, no retractions, labored breathing, is not present, Breath sounds: decreased breath sounds, are not appreciated, stridor, is not appreciated. 13:42 Abdomen/GI: Exam negative for discomfort, distension, guarding, Inspection: abdomen appears normal. 13:42 Skin: no rash present. cp 13:42 Neuro: Orientation: to person, place \T\ time. Mentation: is normal, Motor: moves all cp fours, strength is normal. Vital Signs: 13:24 BP 147 / 99; Pulse 66; Resp 16; Temp 98.4; Pulse Ox 100% on R/A; Weight 97.98 kg; iw Height 6 ft. 2 in. (187.96 cm); 14:13 BP 110 / 80; Pulse 64; Resp 20; Pulse Ox 100% ; dw 13:24 Body Mass Index 27.73 (97.98 kg, 187.96 cm) iw MDM: 13:23 Patient medically screened. cp 13:30 Differential Diagnosis: Bronchitis Influenza Sinusitis Pharyngitis Otitis Media cp Pneumonia Other strep throat. 14:20 Data reviewed: vital signs, nurses notes, lab test result(s), and as a result, I will cp discharge patient. 14:20 Counseling: I had a detailed discussion with the patient and/or guardian regarding: the cp historical points, exam findings, and any diagnostic results supporting the discharge/admit diagnosis, lab results, to return to the emergency department if symptoms worsen or persist or if there are any questions or concerns that arise at home. 05/26 13:24 Order name: Flu; Complete Time: 14:12 05/26 14:12 Interpretation: Reviewed. cp 05/26 13:24 Order name: Strep; Complete Time: 14:12 05/26 14:12 Interpretation: Reviewed. cp 05/26 14:14 Order name: Throat Culture EDMS Administered Medications: No medications were administered Disposition: 15:15 Co-signature as Attending Physician, Ancelmo Sarah MD. Chart complete. rn Disposition: 05/27/19 14:20 Discharged to Home. Impression: Acute upper respiratory infection, unspecified. - Condition is Stable. - Discharge Instructions: Form - Excuse from Work, School, or Physical Activity, Upper Respiratory Infection, Adult, Viral Respiratory Infection. - Work release form, Medication Reconciliation Form, Thank You Letter, Antibiotic Education, Prescription Opioid Use form. - Follow up: Private Physician; When: 2 - 3 days; Reason: Worsening of condition. - Problem is new. - Symptoms are unchanged. Signatures: Dispatcher [employer] EDPR Melissa Guevara RN RN Cinthia Worthington RN RN Ancelmo Sarah MD MD rn Page, Corey, PA PA cp Corrections: (The following items were deleted from the chart) 14:43 14:20 05/27/2019 14:20 Discharged to Home. Impression: Acute upper respiratory dw infection, unspecified. Condition is Stable. Forms are Medication Reconciliation Form, Thank You Letter, Antibiotic Education, Prescription Opioid Use. Follow up: Private Physician; When: 2 - 3 days; Reason: Worsening of condition. Problem is new. Symptoms are unchanged. cp
[2019-05-27 15:07] VITALS: TEMP 98.4; O2SAT 100
[2019-05-27 15:09] VITALS: BP 110/80
== END 2019-05-27 14:43 | disposition home or self-care (01) ==
LOC: ER 13:12
DX: J06.9 Acute upper respiratory infection, unspecified (principal)
CPT/HCPCS: 87070; 87081; 87804; 99283